=== PATIENT | male | born 1960 | race Caucasian/White ===

== ENCOUNTER → 2017-08-09 | Outpatient (CLI) | payer OTHER ==
[~2017-08-09] MED LIST: ISOVUE-370 76% 100ML VIAL (Q9967) As Ordered ONE
--- NOTE | 2017-08-09 09:05 | REP ---
CT NECK WITH CONTRAST: HISTORY: Swollen glands. CONTRAST: Isovue 370, 75 mL. The naso-, vaishali-, and hypopharynx, larynx and subglottic trachea are normal in appearance. The salivary glands are normal in size. A small 4 mm focus of fat is present in the right submandibular gland. The remaining salivary glands are normal in density. A 7 mm hypodensity is present in the right thyroid lobe. This most likely represents a cyst. The left thyroid lobe is hypoplastic. The left thyroid lobe is normal in density. Degenerative change is present in the cervical spine. The lung apices are clear. The visualized sinuses are clear. IMPRESSION: There is a 7 mm hypodensity in the right thyroid lobe. This most likely represents a cyst. Ultrasound may be helpful for further evaluation. Signed by Cyril Keith MD 08/09/2017 11:16 A
== END ==
LOC: M RAD 07:51
PROVIDERS: ATTEND Internal Medicine
DX: R59.0 Localized enlarged lymph nodes (principal)
CPT/HCPCS: 70491; Q9967

== ENCOUNTER → 2017-08-17 | Outpatient (CLI) | payer OTHER ==
--- NOTE | 2017-08-17 08:56 | REP ---
CT maxillofacial study without contrast: History: Chronic rhinitis. Comparison is made with images from brain MRI study dated October 25, 2015. CT findings: The right frontal sinus is small but clear. Left frontal sinus is clear. Ethmoid air cells are clear. There is no evidence of sphenoid or maxillary sinus opacification or mucosal thickening. Mastoid aeration is normal and symmetric. No intraorbital abnormality is seen. The visualized intracranial structures are unremarkable. The bony nasal septum bows somewhat to the left without a visible beak. There is an aerated jessica bullosa on the left. Nasal turbinate soft tissues are otherwise unremarkable. No nasal polyp is seen. There is mild developmental narrowing of the infundibulum on the left. OMCs are patent however bilaterally. No bony destructive lesion is seen. The visualized deep facial structures are unremarkable and symmetric. Impression: Mild leftward bowing of the nasal septum without visible beak. Aerated jessica bullosa on the left. Otherwise normal study. The paranasal sinuses are clear. Signed by James Yu MD 08/17/2017 04:12 P
== END ==
LOC: M RAD 07:04
PROVIDERS: ATTEND Otolaryngology
DX: J31.0 Chronic rhinitis (principal)

== ENCOUNTER 2017-10-17 11:58 | Day surgery (SDC) | payer OTHER ==
[2017-10-17] MEDS ORDERED: NS 1,000 ML IV (12:15)
[2017-10-17] MEDS ORDERED: PROPOFOL 200 MG/20 ML VIAL As Ordered ×3 (13:42→13:51)
[2017-10-17] MEDS ORDERED: LIDOCAINE 2% INJ 100 MG/5 ML SDV (FOR ANES.) As Ordered (13:42)
== END 2017-10-17 14:56 | disposition home or self-care (01) ==
LOC: M OPP 11:58
DX: K62.5 Hemorrhage of anus and rectum (principal); R10.30 Lower abdominal pain, unspecified; D12.3 Benign neoplasm of transverse colon; K64.0 First degree hemorrhoids; K57.30 Diverticulosis of large intestine without perforation or abscess without bleeding; R13.10 Dysphagia, unspecified; R12 Heartburn; K22.8 Other specified diseases of esophagus; K44.9 Diaphragmatic hernia without obstruction or gangrene; K31.89 Other diseases of stomach and duodenum; I10 Essential (primary) hypertension; K21.9 Gastro-esophageal reflux disease without esophagitis; Z85.47 Personal history of malignant neoplasm of testis; Z92.21 Personal history of antineoplastic chemotherapy; Z79.899 Other long term (current) drug therapy
CPT/HCPCS: 45380

== ENCOUNTER 2020-10-10 12:20 | Emergency (ER) | payer OTHER ==
[~2020-10-10] VITALS: Ht 172.7 cm; Wt 81.9 kg
[~2020-10-10 12:20] MED LIST changes: -ISOVUE-370 76% 100ML VIAL (Q9967) As Ordered ONE; +LISI20TA33; +NEXI20CA PO
[2020-10-10] MEDS ORDERED: ONDANSETRON 4MG/2ML VIAL IV ONE (13:00)
[2020-10-10] MEDS ORDERED: NS 1,000 ML IV ONE ×2 (13:00→15:45)
[2020-10-10 13:42] LABS: BASO % 0.1 % (0.0-1.0); HEMATOCRIT 42.7 % (42.0-52.0); HEMOGLOBIN 14.5 g/dl (13.5-17.5); LYMPH # 0.3 10^3/uL (1.5-5.0); MEAN CORPUSCULAR HEMOGLOBIN 29.8 pg (27.0-33.0); MEAN CORPUSCULAR VOLUME 87.7 fl (80.0-96.0); MONO # 0.6 10^3/uL (0.0-0.8); NEUTROPHILS # 6.2 10^3/uL (1.5-8.5); NEUTROPHILS % 87.6 % (36.0-66.0); PLATELET COUNT, AUTOMATED 124 10^3/uL (150-450); RED BLOOD COUNT 4.87 10^6/uL (4.30-6.10)
[2020-10-10 13:57] LABS: BLOOD UREA NITROGEN 15 MG/DL (7-18); CALCIUM LEVEL 9.2 MG/DL (8.8-10.2); CARBON DIOXIDE LEVEL 29 MEQ/L (21-32); CHLORIDE LEVEL 100 MEQ/L (98-107); CREATININE FOR GFR 1.54 MG/DL (0.70-1.30); GLOMERULAR FILTRATION RATE 49.1 (>49); GLUCOSE, FASTING 164 MG/DL (70-100); SODIUM LEVEL 137 MEQ/L (136-145)
[2020-10-10] MEDS ORDERED: KETOROLAC 30 MG/ML 1ML VIAL IV ONE (14:00)
[2020-10-10] MEDS ORDERED: ACETAMINOPHEN TAB 650MG DOSE (2X325MG) PO ONE (14:00)
[2020-10-10] MEDS ORDERED: ACETAMINOPHEN 500 MG TAB PO ONE (14:00)
[2020-10-10 15:38] VITALS: BP 157/76
[2020-10-10 15:40] LABS: CK-MB VALUE MASS < 1.0 NG/ML (<3.6); CPK CREATINE PHOSPHOKINASE 58 U/L (39-308); MB/CK RELATIVE INDEX 1.72 (< OR =4); TROPONIN I < 0.02 NG/ML (< 0.10)
[2020-10-10] MEDS ORDERED: CARVedilol 12.5 MG TAB PO ONE (15:45)
[2020-10-10] MEDS ORDERED: LISI20TA20 PO (16:58)
[2020-10-10] MEDS ORDERED: CORE12.5 PO (16:58)
[2020-10-10 17:00] VITALS: BP 126/67
--- NOTE | 2020-10-10 17:22 | ECGEPIP ---
[facility] - ED Test Date: 2020-10-10 Pat Name: [place] PETE Department: Room: - Gender: Male Infusion Rn: rs : 1960 Requested By: PETER CHAO PA-C. Order Number: [id number] Reading MD: Shira Garces Measurements Intervals [place] Rate: 119 P: 26 SD: 138 QRS: 22 QRSD: 89 T: 64 QT: 313 QTc: 441 Interpretive Statements SINUS TACHYCARDIA ABNORMAL RHYTHM ECG NONSPECIFIC ST T WAVE CHANGES 10/25/[address] T WAVE CHANGES Electronically Signed on 10-10-2020 17:22:19 EST by Shira Garces
== END 2020-10-10 17:20 | disposition home or self-care (01) ==
LOC: M ED 12:20
DX: E86.0 Dehydration (principal); I10 Essential (primary) hypertension; A05.9 Bacterial foodborne intoxication, unspecified; K21.9 Gastro-esophageal reflux disease without esophagitis; Z79.899 Other long term (current) drug therapy
CPT/HCPCS: 80048; 82550; 82553; 84484; 85025; 93005; 96361; 96374; 99285; J2405

== ENCOUNTER 2020-11-14 06:28 | Inpatient (IN) | payer OTHER ==
[~2020-11-14] VITALS: Ht 172.7 cm; Wt 86.5 kg
[~2020-11-14 06:28] MED LIST changes: +CORE12.5 PO; +LISI20TA20 PO; -LISI20TA33; +LISI20TA33 PO
[2020-11-14 07:39] LABS: BASO % 0.3 % (0.0-1.0); EOS # 0.1 10^3/uL (0.0-0.5); EOS % 1.9 % (0.0-3.0); HEMATOCRIT 36.6 % (42.0-52.0); HEMOGLOBIN 12.8 g/dl (13.5-17.5); LYMPH # 0.6 10^3/uL (1.5-5.0); LYMPH % 9.9 % (24.0-44.0); MEAN CORPUSCULAR HEMOGLOBIN 30.5 pg (27.0-33.0); MEAN CORPUSCULAR VOLUME 87.4 fl (80.0-96.0); MONO # 0.4 10^3/uL (0.0-0.8); MONO % 6.1 % (2.0-8.0); NEUTROPHILS # 4.8 10^3/uL (1.5-8.5); NEUTROPHILS % 81.3 % (36.0-66.0); PLATELET COUNT, AUTOMATED 139 10^3/uL (150-450); RED BLOOD COUNT 4.19 10^6/uL (4.30-6.10); WHITE BLOOD COUNT 5.9 10^3/uL (4.0-10.0)
[2020-11-14 08:06] LABS: ALBUMIN 3.6 GM/DL (3.2-5.2); ALT/SGPT 190 U/L (12-78); BILIRUBIN,DIRECT 1.5 MG/DL (0.0-0.2); BILIRUBIN,TOTAL 2.8 MG/DL (0.2-1.0); BLOOD UREA NITROGEN 21 MG/DL (7-18); CALCIUM LEVEL 8.6 MG/DL (8.8-10.2); CARBON DIOXIDE LEVEL 26 MEQ/L (21-32); CHLORIDE LEVEL 109 MEQ/L (98-107); CK-MB VALUE MASS < 1.0 NG/ML (<3.6); CPK CREATINE PHOSPHOKINASE 45 U/L (39-308); CREATININE FOR GFR 1.34 MG/DL (0.70-1.30); GLOMERULAR FILTRATION RATE 57.7 (>49); GLUCOSE, FASTING 170 MG/DL (70-100); LIPASE 141 U/L (73-393); MB/CK RELATIVE INDEX 2.22 (< OR =4); POTASSIUM SERUM 4.3 MEQ/L (3.5-5.1); SODIUM LEVEL 141 MEQ/L (136-145); TOTAL PROTEIN 6.6 GM/DL (6.4-8.2); TROPONIN I < 0.02 NG/ML (< 0.10)
--- NOTE | 2020-11-14 08:30 | REP ---
INDICATION: Abdominal Pain COMPARISON: None. TECHNIQUE: Upright view of the chest with supine and upright views of the abdomen and pelvis. FINDINGS: Frontal upright view of the chest demonstrates no acute cardiopulmonary process or free air below the diaphragm to suspect pneumoperitoneum. Supine and upright views of the abdomen and pelvis demonstrate nonspecific bowel gas pattern without obstruction or perforation. Surgical clips overlie the abdomen. No organomegaly. No abnormal calcifications. Skeletal structures normal for age. IMPRESSION: Nonspecific bowel gas pattern. <Electronically signed by Emiliano Bae > 11/14/20 0810
--- NOTE | 2020-11-14 08:32 | REP ---
INDICATION: RUQ abd pain, worse after eating COMPARISON: None. TECHNIQUE: Real time holloway scale ultrasound examination using curved array transducer. FINDINGS: Liver demonstrates fatty infiltration without focal hepatic lesion identified. The pancreas is incompletely evaluated due to interposed bowel gas but visualized portions appear normal. Gallbladder demonstrates multiple gallstones without wall thickening or pericholecystic fluid to suggest acute cholecystitis. No biliary ductal dilatation is appreciated and the common bile duct measures 6 mm diameter. Right kidney measures 12.3 x 4.8 x 4.2 cm with 1.3 cm lower pole cortical cyst, and no evidence for hydronephrosis or nephrolithiasis. No ascites. IMPRESSION: 1. Cholelithiasis. 2. Hepatosteatosis. 3. 1.3 cm right renal cyst. <Electronically signed by Emiliano Bae > 11/14/20 0821
--- NOTE | 2020-11-14 08:41 | ED PDOC ---
Post-Departure Follow-Up radiology report faxed to mariah Mohr Sarah MD Nov 14, 2020 08:41
[2020-11-14] MEDS ORDERED: CARV12.5 PO (08:51)
[2020-11-14] MEDS ORDERED: MORPHINE 2 MG/ML 1ML VIAL (J2270) IV PRN (09:20)
[2020-11-14] MEDS: CARVedilol 12.5 MG TAB PO SCH ×2 (09:48→20:03)
[2020-11-14] MEDS: LR 1,000 ML IV SCH ×2 (09:49→20:03)
--- NOTE | 2020-11-14 09:49 | ECGEPIP ---
[facility] - ED Test Date: 2020-11-14 Pat Name: [place] PETE Department: Room: - Gender: Male Sock Turner: IAN : 1960 Requested By: RAKESH Brandon PA-C Order Number: [id number] Reading MD: Jeremy Sands Measurements Intervals [place] Rate: 90 P: 54 MD: 144 QRS: 54 QRSD: 86 T: 23 QT: 346 QTc: 423 Interpretive Statements Normal sinus rhythm NONSPECIFIC T WAVE ABNORMALITY(S) RATE CHANGE COMPARED TO 10/10/20 Electronically Signed on 11-14-2020 9:49:18 EDT by Jeremy Sands
[2020-11-14] MEDS: PANTOPRAZOLE 40MG VIAL (C9113 PER 1) IV SCH (10:01)
[2020-11-14 10:09] LABS: RSV AMPLIFICATION NEGATIVE (NEGATIVE)
--- NOTE | 2020-11-14 10:38 | HPEPDOC ---
General Date of Admission 11/14/20 Date of Service: Nov 14, 2020 Chief Complaint The patient is a 60-year-old male admitted with a reason for visit of Marie Hu. Source: Patient, RN/MD History of Present Illness 60 year old male with PMH of GERD, hiatal hernia, ole h/o left testicular cancer, HLD, presented to ED with right upper quadrant pain for the past 12 hours which started after dinner last night. He felt some acid reflux in the colorer and had 2 episodes of vomiting overnight and now feels bloated. His pain in the RUQ is constant, dull aching about 6/10 in intensity with no radiation. No fever or chills. He does have chronic constipation. He reported that the cahnge in his bowel habits started about 2 years ago. He also reported early satiety when he would feel fullHis abdominal discomfort is a little better after he threw up early this morning. Abdominal US showed Cholelithiasis and labs showed elevated LFTs. Patient admitted for biliary colic and possible CBD obstruction. MRCP has been ordered. Home Medications Scheduled Carvedilol (Carvedilol) 12.5 Mg Tablet, 12.5 MG PO BID, (Reported) Esomeprazole Magnesium (Nexium) 20 Mg Cap, 20 MG PO QPM, (Reported) Lisinopril (Lisinopril) 20 Mg Tab, 20 MG PO DAILY, (Reported) Allergies Coded Allergies: No Known Allergies (Unverified , 10/11/17) Past Medical History Medical History HTN testicular cancer s/p Left radical orchidectomy , retroperitoneal lymph node dissection and chemotherapy in 1980 GERD Diverticulosis in the recto-sigmoid colon, in the sigmoid colon and in the descending colon Hemorrhoids Multiple colonic polyps removed. hiatal hernia h/o chronic prostatitis. Surgical History Hemorroid surgery Left orchidectomy and retroperitoneal lymph node dissection Family History Significant Family History: Diabetes (father), Other (sister gall stones) Social History * Smoker: Denies Alcohol: Denies Drugs: denies A-FIB/CHADSVASC A-FIB History Current/History of A-Fib/PAF?: No Review of Systems Constitutional: Denies: Chills, Fever, Night Sweats Eyes: Denies: Pain, Vision change ENT: Denies: Head Aches, Ear Pain, Dysphagia Skin: Denies: Rash, Lesions, Breakdown Pulmonary: Denies: Dyspnea, Cough Cardiovascular: Denies: Chest Pain, Palpitations, Orthopnea, Paroxysmal Noc. Dyspnea, Lt Headedness Gastrointestinal: Reports: Nausea, Vomiting, Abdominal Pain Genitourinary: Denies: Dysuria, Frequency, Incontinence, Retention Hematologic: Denies: Bruising, Bleeding Excessively Physical Examination General Exam: Positive: Alert, Cooperative, No Acute Distress Eye Exam: Positive: PERRLA, Conjunctiva & lids normal, EOMI; Negative: Sclera icteric ENT Exam: Positive: Atraumatic, Mucous membr. moist/pink, Pharynx Normal Neck Exam: Positive: Supple; Negative: JVD, thyromegaly Chest Exam: Positive: Clear to auscultation, Normal air movement Heart Exam: Positive: Rate Normal, Regular Rhythm, Normal S1, Normal S2; Negative: Murmurs, Rubs Abdomen Exam: Positive: Normal bowel sounds, Soft, Tenderness (mild on RUQ); Negative: Hepatospenomegaly Extremity Exam: Positive: Normal pulses; Negative: Clubbing, Cyanosis, Edema Vital Signs Vital Signs Date Time Temp Pulse Resp B/P (MAP) Pulse Ox O2 Delivery O2 Flow Rate FiO2 11/14/20 07:45 155/70 (98) 11/14/20 07:45 98.9 92 16 98 11/14/20 06:29 Room Air Laboratory Data Labs 24H Laboratory Tests 2 11/14/20 07:18: Urine Color YELLOW, Urine Appearance CLEAR, Urine pH 5.0, Urine Specific [place] 1.018, Urine Protein NEGATIVE, Urine Glucose (UA) 1+H, Urine Ketones NEGATIVE, Urine Blood NEGATIVE, Urine Nitrite NEGATIVE, Urine Bilirubin NEGATIVE, Urine Urobilinogen 2.0H, Urine Leukocyte Esterase NEGATIVE, Urine WBC (Auto) 1, Urine RBC (Auto) 1, Urine Hyaline Casts (Auto) 0, Urine Bacteria (Auto) NEGATIVE, Urine Squamous Epithelial Cells 0, Urine Mucus (Auto) SMALL, Urine Sperm (Auto) 11/14/20 07:19: Immature Granulocyte % (Auto) 0.5, Neutrophils (%) (Auto) 81.3H, Lymphocytes (%) (Auto) 9.9L, Monocytes (%) (Auto) 6.1, Eosinophils (%) (Auto) 1.9, Basophils (%) (Auto) 0.3, Neutrophils # (Auto) 4.8, Lymphocytes # (Auto) 0.6L, Monocytes # (Auto) 0.4, Eosinophils # (Auto) 0.1, Basophils # (Auto) 0.0, Nucleated Red Blood Cells % (auto) 0.0, Anion Gap 6L, Glomerular Filtration Rate 57.7, Calcium Level 8.6L, Total Bilirubin 2.8H, Direct Bilirubin 1.5H, Aspartate Amino Transf (AST/SGOT) 181H, Alanine Aminotransferase (ALT/SGPT) 190H, Alkaline Phosphatase 81, Total Creatine Kinase 45, Creatine Kinase MB < 1.0, Creatine Kinase MB Relative Index 2.22, Troponin I < 0.02, Total Protein 6.6, Albumin 3.6, Albumin /Globulin Ratio 1.2, Lipase 141 CBC/BMP Laboratory Tests 11/14/20 07:19 Assessment/Plan 60 year old male with PMH of GERD, hiatal hernia, ole h/o left testicular c ancer, HLD, presented to ED with right upper quadrant pain for the past 12 hours which started after dinner last night. He felt some acid reflux in the colorer and had 2 episodes of vomiting overnight and now feels bloated. His pain in the RUQ is constant, dull aching about 6/10 in intensity with no radiation. No fever or chills. He does have chronic constipation. His abdominal discomfort is a little better after he threw up early this morning. Abdominal US showed Cholelithiasis and labs showed elevated LFTs. Patient admitted for biliary colic and possible CBD obstruction. Biliary Colic/ CBD stone does not look like he has acute cholecystitis. as no WBC, no fever. US with gallstones. MRCP NPO, IVF. GERD PPI HTN continue coreg and lisinopril Plan / VTE VTE Prophylaxis Ordered?: Yes ISAURA REYES MD Nov 14, 2020 09:17
--- NOTE | 2020-11-14 11:07 | REPVR ---
PROCEDURE INFORMATION: Exam: MR Abdomen Without Contrast Exam date and time: 11/14/2020 8:41 AM Age: 60 years old Clinical indication: Abdominal tenderness; Additional info: Ruq abd pain, elevated bilirubin/lft's, cholelithiasis TECHNIQUE: Imaging protocol: MR of the abdomen without contrast. COMPARISON: GALLBLADDER US 11/14/2020 7:53 AM FINDINGS: Liver: Hepatic steatosis. Small cyst in the posterior liver. Gallbladder and bile ducts: Clustered gallstones in the gallbladder neck, with gallbladder distention and gallbladder wall thickening with mild pericholecystic edema and fluid accumulation. Common bile duct measures 6 mm, within normal limits. No filling defects to suggest choledocholithiasis although there is truncated signal intensity within the distal common bile duct. Pancreas: Pancreatic duct is not dilated. Spleen: Mild splenomegaly. 1.5 cm cyst or hemangioma in the posterior spleen. Adrenal glands: No mass. Kidneys and ureters: Multiple small simple renal cortical cysts. There is a 1.4 cm indeterminate signal intensity right posterior exophytic renal lesion (series 301, image 5). Stomach and bowel: Visualized stomach and intestines are unremarkable. Appendix: Study is degraded by patient motion artifact. Intraperitoneal space: No free fluid. Arteries: No abdominal aortic aneurysm. IMPRESSION: 1. Cholelithiasis with findings suspicious for early acute cholecystitis. While there are no discrete common bile duct filling defects, truncated appearance of the distal common bile duct could represent an impacted stone however there is no significant biliary ductal dilation and this may be secondary to motion artifact. 2. Indeterminate signal intensity exophytic right renal lesion. Recommend multiphasic renal MRI for further evaluation on a nonemergent basis. 3. Splenomegaly. 4. Hepatic steatosis. Electronically signed by: Poncho Morales On 11/14/2020 11:06:35 AM
[2020-11-14 11:30] VITALS: BP 167/92
[2020-11-14] MEDS: PIPERACILLIN/TAZOBACTAM SOD 3.375 GM in D5W MINI-BAG PLUS 50 ML IV SCH ×3 (12:21→23:46)
[2020-11-14] MEDS: ACETAMINOPHEN TAB 650MG DOSE (2X325MG) PO PRN ×2 (14:52→20:02)
[2020-11-14 22:00] VITALS: BP 126/72
[2020-11-15] MEDS: PIPERACILLIN/TAZOBACTAM SOD 3.375 GM in D5W MINI-BAG PLUS 50 ML IV SCH ×3 (05:18→17:45)
[2020-11-15] MEDS: LR 1,000 ML IV SCH ×2 (05:38→17:45)
[2020-11-15 06:00] VITALS: BP 117/71
[2020-11-15 06:52] LABS: BASO % 0.3 % (0.0-1.0); EOS # 0.2 10^3/uL (0.0-0.5); EOS % 3.8 % (0.0-3.0); HEMOGLOBIN 11.4 g/dl (13.5-17.5); LYMPH # 0.7 10^3/uL (1.5-5.0); LYMPH % 18.3 % (24.0-44.0); MEAN CORPUSCULAR HEMOGLOBIN 30.4 pg (27.0-33.0); MEAN CORPUSCULAR HGB CONC 34.5 g/dl (32.0-36.5); MONO # 0.4 10^3/uL (0.0-0.8); MONO % 10.7 % (2.0-8.0); NEUTROPHILS # 2.6 10^3/uL (1.5-8.5); NEUTROPHILS % 66.1 % (36.0-66.0); PLATELET COUNT, AUTOMATED 123 10^3/uL (150-450); RED BLOOD COUNT 3.75 10^6/uL (4.30-6.10); WHITE BLOOD COUNT 3.9 10^3/uL (4.0-10.0)
[2020-11-15 07:09] LABS: BILIRUBIN,TOTAL 3.2 MG/DL (0.2-1.0); CALCIUM LEVEL 8.2 MG/DL (8.8-10.2); CREATININE FOR GFR 1.38 MG/DL (0.70-1.30); GLOMERULAR FILTRATION RATE 55.8 (>49); POTASSIUM SERUM 3.9 MEQ/L (3.5-5.1); TOTAL PROTEIN 5.9 GM/DL (6.4-8.2)
[2020-11-15] MEDS: CARVedilol 12.5 MG TAB PO SCH ×2 (08:57→20:55)
[2020-11-15] MEDS: PANTOPRAZOLE 40MG VIAL (C9113 PER 1) IV SCH (08:57)
--- NOTE | 2020-11-15 11:59 | IPNPDOC ---
Subjective Date Seen The patient was seen on 11/15/20. Subjective Chief Complaint/HPI Denies any abdominal pain. Does not have much appetite also. He is still constipated. He reports that this constipation started about 2 years. He also reports early satiety for several months when if he had a big lunch he would skip dinner and breakfast the next day and not feel hungry till the lunch next day. Objective Physical Examination General Exam: Positive: Alert, Cooperative, No Acute Distress Eye Exam: Positive: PERRLA, Conjunctiva & lids normal, EOMI; Negative: Sclera icteric ENT Exam: Positive: Atraumatic, Mucous membr. moist/pink, Pharynx Normal Neck Exam: Positive: Supple; Negative: JVD, thyromegaly Chest Exam: Positive: Clear to auscultation, Normal air movement Heart Exam: Positive: Rate Normal, Regular Rhythm, Normal S1, Normal S2; Negative: Murmurs, Rubs Abdomen Exam: Positive: Normal bowel sounds, Soft; Negative: Tenderness, Hepatospenomegaly Extremity Exam: Positive: Normal pulses; Negative: Clubbing, Cyanosis, Edema Assessment /Plan Assessment 60 year old male with PMH of GERD, hiatal hernia, ole h/o left testicular cancer, HLD, presented to ED with right upper quadrant pain for the past 12 hours which started after dinner last night. 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 His pain in the RUQ is constant, dull aching about 6/10 in intensity with no radiation. No fever or chills. He does have chronic constipation. His abdominal discomfort is a little better after he threw up early this morning. Abdominal US showed Cholelithiasis and labs showed elevated LFTs. Patient admitted for sreekanth iary colic and possible CBD obstruction. Biliary Colic/ CBD stone does not look like he has acute cholecystitis. as no WBC, no fever. US with gallstones. MRCP : Gallbladder and bile ducts: Clustered gallstones in the gallbladder neck, with gallbladder distention and gallbladder wall thickening with mild pericholecystic edema and fluid accumulation. Common bile duct measures 6 mm, within normal limits. No filling defects to suggest choledocholithiasis although there is truncated signal intensity within the distal common bile duct. Clear liquids. discussed with Dr Phillips he will see pt. He is not convinced that this is acute cholecystitis as the US did not show any features . MRCP is often an over read. Any way he would suggest an HIDA scan as the next step if he does not need ercp. Discussed with Dr Serrano as per him if LFTs remain elevated this afternoon on repeat labs then he will likely need an ERCP. GERD PPI HTN continue coreg and lisinopril Plan/VTE VTE Prophylaxis Ordered?: Yes VS, I&O, 24H, Fishbone Vital Signs/I&O Vital Signs Date Time Temp Pulse Resp B/P (MAP) Pulse Ox O2 Delivery O2 Flow Rate FiO2 11/15/20 08:57 77 116/73 11/15/20 06:00 99.2 18 96 Room Air I&O- Last 24 Hours up to 6 AM 11/15/20 06:00 Intake Total 2460 ml Output Total 875 ml Balance 1585 ml Laboratory Data 24H LABS Laboratory Tests 2 11/15/20 06:27: Immature Granulocyte % (Auto) 0.8, Neutrophils (%) (Auto) 66.1H, Lymphocytes (%) (Auto) 18.3L, Monocytes (%) (Auto) 10.7H, Eosinophils (%) (Auto) 3.8H, Basophils (%) (Auto) 0.3, Neutrophils # (Auto) 2.6, Lymphocytes # (Auto) 0.7L, Monocytes # (Auto) 0.4, Eosinophils # (Auto) 0.2, Basophils # (Auto) 0.0, Nucleated Red Blood Cells % (auto) 0.0, Anion Gap 6L, Glomerular Filtration Rate 55.8, Calcium Level 8.2L, Total Bilirubin 3.2H, Aspartate Amino Transf (AST/SGOT) 120H, Alanine Aminotransferase (ALT/SGPT) 213H, Alkaline Phosphatase 86, Total Protein 5.9L, Albumin 3.0L, Albumin/Globulin Ratio 1.0 CBC/BMP Laboratory Tests 11/15/20 06:27 ISAURA REYES MD Nov 15, 2020 11:58
[2020-11-15 15:13] LABS: ALBUMIN 3.2 GM/DL (3.2-5.2); BILIRUBIN,DIRECT 0.7 MG/DL (0.0-0.2); BILIRUBIN,TOTAL 2.5 MG/DL (0.2-1.0); TOTAL PROTEIN 5.8 GM/DL (6.4-8.2)
[2020-11-15 22:00] VITALS: BP 117/72
[2020-11-16] MEDS: PIPERACILLIN/TAZOBACTAM SOD 3.375 GM in D5W MINI-BAG PLUS 50 ML IV SCH ×2 (00:41→05:42)
[2020-11-16 06:00] VITALS: BP 118/72
[2020-11-16 06:59] LABS: BASO % 0.8 % (0.0-1.0); EOS # 0.2 10^3/uL (0.0-0.5); EOS % 5.5 % (0.0-3.0); HEMATOCRIT 34.8 % (42.0-52.0); HEMOGLOBIN 11.9 g/dl (13.5-17.5); LYMPH % 24.3 % (24.0-44.0); MEAN CORPUSCULAR HEMOGLOBIN 30.7 pg (27.0-33.0); MEAN CORPUSCULAR HGB CONC 34.2 g/dl (32.0-36.5); MEAN CORPUSCULAR VOLUME 89.7 fl (80.0-96.0); MONO # 0.4 10^3/uL (0.0-0.8); MONO % 10.8 % (2.0-8.0); NEUTROPHILS # 2.3 10^3/uL (1.5-8.5); NEUTROPHILS % 58.3 % (36.0-66.0); PLATELET COUNT, AUTOMATED 137 10^3/uL (150-450); RED BLOOD COUNT 3.88 10^6/uL (4.30-6.10)
[2020-11-16 07:27] LABS: ALBUMIN 3.1 GM/DL (3.2-5.2); CALCIUM LEVEL 8.3 MG/DL (8.8-10.2); CREATININE FOR GFR 1.57 MG/DL (0.70-1.30); GLOMERULAR FILTRATION RATE 48.1 (>49)
[2020-11-16] MEDS: PANTOPRAZOLE 40MG VIAL (C9113 PER 1) IV SCH (08:35)
[2020-11-16 08:36] VITALS: BP 145/76
[2020-11-16] MEDS: CARVedilol 12.5 MG TAB PO SCH (08:36)
[2020-11-16] MEDS ORDERED: AUGM875T28 PO (10:16)
--- NOTE | 2020-11-16 10:50 | DS.PDOC ---
Discharge Summary General Date of Admission Nov 14, 2020 at 09:17 Date of Discharge 11/16/20 Discharge Summary PROCEDURES PERFORMED DURING STAY: [None]. DISCHARGE DIAGNOSES: Biliary Colic with passage of stone or sludge Gall stones GERD HTN COMPLICATIONS/CHIEF COMPLAINT: Transaminitis. HOSPITAL COURSE: 60 year old male with PMH of GERD, hiatal hernia, ole h/o left testicular cancer, HLD, presented to ED with right upper quadrant pain for the past 12 hours which started after dinner last night. 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 His pain in the RUQ is constant, dull aching about 6/10 in intensity with no radiation. No fever or chills. He does have chronic constipation. His abdominal discomfort is a little better after he threw up early this morning. Abdominal US showed Cholelithiasis and labs showed elevated LFTs. Patient admitted for biliary colic and possible CBD obstruction. Biliary Colic and passage of CBD stone does not look like he has acute cholecystitis. as no WBC, no fever. US with gallstones. MRCP : Gallbladder and bile ducts: Clustered gallstones in the gallbladder neck, with gallbladder distention and gallbladder wall thickening with mild pericholecystic edema and fluid accumulation. Common bile duct measures 6 mm, within normal limits. No filling defects to suggest choledocholithiasis alt matilde there is truncated signal intensity within the distal common bile duct. Discussed with Dr Serrano as labs better and he is tolerating food he thinks the stone or sludge has passed and he does not need ERCP. GERD PPI HTN continue coreg and lisinopril DISCHARGE MEDICATIONS: Please see below. ALLERGIES: Please see below. PHYSICAL EXAMINATION ON DISCHARGE: VITAL SIGNS: Please see below. General Exam: Positive: Alert, Cooperative, No Acute Distress Eye Exam: Positive: PERRLA, Conjunctiva & lids normal, EOMI; Negative: Sclera icteric ENT Exam: Positive: Atraumatic, Mucous membr. moist/pink, Pharynx Normal Neck Exam: Positive: Supple; Negative: JVD, thyromegaly Chest Exam: Positive: Clear to auscultation, Normal air movement Heart Exam: Positive: Rate Normal, Regular Rhythm, Normal S1, Normal S2; Negative: Murmurs, Rubs Abdomen Exam: Positive: Normal bowel sounds, Soft; Negative: Tenderness, Hepatosplenomegaly Extremity Exam: Positive: Normal pulses; Negative: Clubbing, Cyanosis, Edema LABORATORY DATA: Please see below. IMAGING: MRCP: Liver: Hepatic steatosis. Small cyst in the posterior liver. Gallbladder and bile ducts: Clustered gallstones in the gallbladder neck, with gallbladder distention and gallbladder wall thickening with mild pericholecystic edema and fluid accumulation. Common bile duct measures 6 mm, within normal limits. No filling defects to suggest choledocholithiasis although there is truncated signal intensity within the distal common bile duct. Pancreas: Pancreatic duct is not dilated. Spleen: Mild splenomegaly. 1.5 cm cyst or hemangioma in the posterior spleen. Adrenal glands: No mass. Kidneys and ureters: Multiple small simple renal cortical cysts. There is a 1.4 cm indeterminate signal intensity right posterior exophytic renal lesion (series 301, image 5). Stomach and bowel: Visualized stomach and intestines are unremarkable. Appendix: Study is degraded by patient motion artifact. Intraperitoneal space: No free fluid. Arteries: No abdominal aortic aneurysm. IMPRESSION: 1. Cholelithiasis with findings suspicious for early acute cholecystitis. While there are no discrete common bile duct filling defects, truncated appearance of the distal common bile duct could represent an impacted stone however there is no significant biliary ductal dilation and this may be secondary to motion artifact. 2. Indeterminate signal intensity exophytic right renal lesion. Recommend multiphasic renal MRI for further evaluation on a nonemergent basis. 3. Splenomegaly. 4. Hepatic steatosis. ACTIVITY: [As tolerated]. DIET: Low fat and low cholesterol DISCHARGE PLAN: Home DISCHARGE INSTRUCTIONS: PMD in 1 week, Referral to Surgeon Dr Phillips in 2 to 3 weeks DISCHARGE CONDITION: [Stable]. TIME SPENT ON DISCHARGE: 35 minutes. Vital Signs/I&Os Vital Signs Date Time Temp Pulse Resp B/P (MAP) Pulse Ox O2 Delivery O2 Flow Rate FiO2 11/16/20 08:36 80 145/76 11/16/20 06:00 98.1 18 98 Room Air I&O- Last 24 Hours up to 6 AM 11/16/20 06:00 Intake Total 1350 ml Output Total 300 ml Balance 1050 ml Laboratory Data Labs 24H Laboratory Tests 2 11/15/20 14:04: Total Bilirubin 2.5H, Direct Bilirubin 0.7H, Aspartate Amino Transf (AST/SGOT) 96H, Alanine Aminotransferase (ALT/SGPT) 197H, Alkaline Phosphatase 82, Total Protein 5.8L, Albumin 3.2, Albumin/Globulin Ratio 1.2 11/16/20 06:36: Total Bilirubin 2.0H, Aspartate Amino Transf (AST/SGOT) 56H, Alanine Aminotransferase (ALT/SGPT) 158H, Alkaline Phosphatase 78, Total Protein 6.0L, Albumin 3.1L, Albumin/Globulin Ratio 1.1, Immature Granulocyte % (Auto) 0.3, Neutrophils (%) (Auto) 58.3, Lymphocytes (%) (Auto) 24.3, Monocytes (%) (Auto) 10.8H, Eosinophils (%) (Auto) 5.5H, Basophils (%) (Auto) 0.8, Neutrophils # (Auto) 2.3, Lymphocytes # (Auto) 1.0L, Monocytes # (Auto) 0.4, Eosinophils # (Auto) 0.2, Basophils # (Auto) 0.0, Nucleated Red Blood Cells % (auto) 0.0, Ani on Gap 6L, Glomerular Filtration Rate 48.1L, Calcium Level 8.3L CBC/BMP Laboratory Tests 11/16/20 06:36 Discharge Medications Scheduled Amoxicillin/Potassium Clav (Augmentin 875-125 Tablet) 1 Each Tablet, 1 TAB PO BID Carvedilol (Carvedilol) 12.5 Mg Tablet, 12.5 MG PO BID, (Reported) Esomeprazole Magnesium (Nexium) 20 Mg Cap, 20 MG PO QPM, (Reported) Lisinopril (Lisinopril) 20 Mg Tab, 20 MG PO DAILY, (Reported) Allergies Coded Allergies: No Known Allergies (Unverified , 10/11/17) ISAURA REYES MD Nov 16, 2020 10:50
== END 2020-11-16 12:00 | disposition home or self-care (01) | DRG 446 ==
LOC: M ED 06:28 → M ED INP 09:17 → ENRESERV 09:26 → M MS5PR 11:33
PROVIDERS: ADMIT Internal Medicine Nephrology; ATTEND Internal Medicine Nephrology
DX: K80.70 Calculus of gallbladder and bile duct without cholecystitis without obstruction (principal); K21.9 Gastro-esophageal reflux disease without esophagitis; K59.09 Other constipation; I10 Essential (primary) hypertension; K44.9 Diaphragmatic hernia without obstruction or gangrene; E78.5 Hyperlipidemia, unspecified; K76.0 Fatty (change of) liver, not elsewhere classified; K64.9 Unspecified hemorrhoids; Z85.47 Personal history of malignant neoplasm of testis; Z86.010 Personal history of colon polyps; Z92.21 Personal history of antineoplastic chemotherapy; K57.30 Diverticulosis of large intestine without perforation or abscess without bleeding; Z79.899 Other long term (current) drug therapy; Z90.79 Acquired absence of other genital organ(s)

== ENCOUNTER → 2020-12-12 | Outpatient (CLI) | payer OTHER ==
[~2020-12-12] MED LIST changes: +AUGM875T28 PO; +CARV12.5 PO
== END ==
LOC: M LABSMTC 10:10
PROVIDERS: ATTEND Anesthesiology
DX: Z11.52 Encounter for screening for COVID-19 (principal)

== ENCOUNTER 2020-12-17 10:59 | Day surgery (SDC) | payer OTHER ==
[~2020-12-17] VITALS: Ht 175.3 cm; Wt 79.4 kg
[~2020-12-17 10:59] MED LIST changes: +LR 1,000 ML IV ONE
[2020-12-17] MEDS ORDERED: BUPIVACAINE/EPIN 0.25% 30 ML VIAL As Ordered ONE (12:19)
[2020-12-17] MEDS ORDERED: propofoL 200 MG/20 ML VIAL As Ordered ONE (12:45)
[2020-12-17] MEDS ORDERED: fentaNYL 250 MCG/5 ML INJECTION (J3010) As Ordered ONE (12:45)
[2020-12-17] MEDS ORDERED: dexameTHASONE 4 MG/ML 1ML VIAL (J1100 PER 1MG) As Ordered ONE (12:45)
[2020-12-17] MEDS ORDERED: ONDANSETRON 4MG/2ML VIAL As Ordered ONE ×2 (12:45→15:40)
[2020-12-17] MEDS ORDERED: LIDOCAINE 2% 100MG/5ML SDV (FOR ANES.) As Ordered ONE (12:45)
[2020-12-17] MEDS ORDERED: ROCURONIUM BROMIDE 50 MG/5 ML VIAL As Ordered ONE (12:45)
[2020-12-17] MEDS ORDERED: MIDAZOLAM INJ 2MG/2ML VIAL (J2250 PER 1MG) As Ordered ONE (12:45)
[2020-12-17] MEDS ORDERED: KETOROLAC 60MG 2ML VIAL As Ordered ONE (12:45)
[2020-12-17] MEDS ORDERED: SUGAMMADEX SODIUM 500 MG/5 ML VIAL (BRIDION) As Ordered ONE (12:45)
[2020-12-17] MEDS ORDERED: ACETAMINOPHEN 1000MG 100ML IV BTL (OFIRMEV) (J0131 PER 10MG) As Ordered ONE (12:51)
[2020-12-17] MEDS ORDERED: fentaNYL 100 MCG/2 ML INJECTION (J3010) As Ordered ONE (13:53)
[2020-12-17] MEDS: fentaNYL 100 MCG/2 ML INJECTION (J3010) IV PRN ×4 (13:57→14:18)
[2020-12-17] MEDS ORDERED: NORCO, ANEXSIA 5/325MG TABLET (HYDROcodone/ACETAMINOPHEN) PO PRN (14:05)
[2020-12-17] MEDS ORDERED: ONDANSETRON 4MG/2ML VIAL IV PRN (14:05)
[2020-12-17] MEDS ORDERED: METOCLOPRAMIDE INJ 10MG/2ML VIAL (J2765 PER 1) IV PRN ×2 (14:05→15:45)
[2020-12-17] MEDS ORDERED: MEPERIDINE INJ 25 MG/ML VIAL (J2175) IV PRN (14:05)
[2020-12-17] MEDS ORDERED: oxyCODONE 5MG TAB PO PRN (14:05)
[2020-12-17] MEDS ORDERED: LR 1,000 ML IV SCH (14:05)
[2020-12-17] MEDS: HYDROMORPHONE HCL 0.5 MG/ 0.5 ML SYRINGE (J1170 PER 1) IV PRN ×4 (14:38→14:58)
--- NOTE | 2020-12-17 14:42 | RO ---
OPERATIVE NOTE DATE OF OPERATION: 12/17/2020 PREOPERATIVE DIAGNOSIS: Symptomatic cholelithiasis. POSTOPERATIVE DIAGNOSIS: Symptomatic cholelithiasis. PROCEDURE: Robotic cholecystectomy. SURGEON: Sree Phillips DO NUCLEAR CONTROL ROOM OPERATOR: Alina Patino NP ANESTHESIA: General. EBL: 5 mL. COMPLICATIONS: None. INDICATION FOR PROCEDURE: The patient is a 60- year-old male who presents with right upper quadrant pain, found to have symptomatic cholelithiasis. Recommendation was to proceed with robotic cholecystectomy. Risks and benefits of the procedure not limited to but including bleeding, infection, hernia, damage to surrounding structures and need for further surgery were discussed in detail with the patient. Informed consent was obtained and procedure was planned. DESCRIPTION OF PROCEDURE: The patient was brought back to operating room 7. After sufficient sedation, the abdomen was sterilely prepped and draped. Next, time-out was done to confirm proper patient and proper procedure. Following that an 8 mm incision was made in the left upper quadrant, Veress needle was inserted and the abdomen was insufflated to 15 mmHg. Veress needle was then removed. An 8-mm Optiview port was used to gain access to the abdomen. Once the abdomen was entered, there were multiple small bowel adhesions from the umbilicus superiorly and one in the midline. I was able to look around to the other side and place three ports under direct visualization in the right upper quadrant. Using those three ports, I was able to connect them to the robot and complete the procedure. When the ports were connected to the robot and next from the console, the fundus of the gallbladder was elevated up into the right shoulder. The cystic duct and cystic artery were carefully dissected free using a combination of blunt and sharp dissection. Once they were both identified, they were both doubly clipped and cut. The gallbladder was then dissected free from the gallbladder fossa using electrocautery. Once the gallbladder was removed, it was placed in a 5-mm Endo Catch bag and brought out through the right port site and the abdomen was then desufflated. Skin incisions were closed with 4-0 Vicryl subcuticular sutures. The abdomen was cleaned and dried. Steri-Strips, 4x4 and tape were applied.
[2020-12-17] MEDS ORDERED: METOCLOPRAMIDE INJ 10MG/2ML VIAL (J2765 PER 1) As Ordered ONE (15:43)
[2020-12-17 17:22] VITALS: BP 161/96
== END 2020-12-17 17:36 | disposition home or self-care (01) ==
LOC: M SDC 10:59
PROVIDERS: ATTEND Surgery
DX: K80.10 Calculus of gallbladder with chronic cholecystitis without obstruction (principal); K21.9 Gastro-esophageal reflux disease without esophagitis; I10 Essential (primary) hypertension; J34.2 Deviated nasal septum; J31.0 Chronic rhinitis; M54.5 Low back pain; Z79.899 Other long term (current) drug therapy; Z85.47 Personal history of malignant neoplasm of testis
CPT/HCPCS: 47562; 88304; J0131; J1100; J1170; J1885; J2250; J2405; J2765; J3010; S2900

== ENCOUNTER 2021-02-13 19:35 | Emergency (ER) | payer OTHER ==
[~2021-02-13] VITALS: Ht 175.3 cm; Wt 78.1 kg
[~2021-02-13 19:35] MED LIST changes: -LR 1,000 ML IV ONE
[2021-02-13 21:12] LABS: BASO % 0.3 % (0.0-1.0); EOS # 0.3 10^3/uL (0.0-0.5); EOS % 4.4 % (0.0-3.0); HEMATOCRIT 40.9 % (42.0-52.0); HEMOGLOBIN 14.3 g/dl (13.5-17.5); LYMPH # 1.7 10^3/uL (1.5-5.0); LYMPH % 24.7 % (24.0-44.0); MEAN CORPUSCULAR HEMOGLOBIN 30.9 pg (27.0-33.0); MEAN CORPUSCULAR VOLUME 88.3 fl (80.0-96.0); MONO # 0.6 10^3/uL (0.0-0.8); MONO % 9.1 % (2.0-8.0); NEUTROPHILS # 4.2 10^3/uL (1.5-8.5); NEUTROPHILS % 60.9 % (36.0-66.0); PLATELET COUNT, AUTOMATED 205 10^3/uL (150-450); RED BLOOD COUNT 4.63 10^6/uL (4.30-6.10); WHITE BLOOD COUNT 6.8 10^3/uL (4.0-10.0)
[2021-02-13] MEDS ORDERED: LIDOCAINE 5% (LIDODERM) PATCH TD ONE (21:25)
[2021-02-13] MEDS ORDERED: ACETAMINOPHEN 500 MG TAB PO ONE (21:25)
[2021-02-13] MEDS ORDERED: methocarbamoL 750 MG TAB PO ONE (21:25)
[2021-02-13 21:36] LABS: ALBUMIN 3.8 GM/DL (3.2-5.2); BILIRUBIN,DIRECT 0.3 MG/DL (0.0-0.2); BILIRUBIN,TOTAL 1.6 MG/DL (0.2-1.0); TOTAL PROTEIN 7.1 GM/DL (6.4-8.2)
[2021-02-13] MEDS ORDERED: ONDANSETRON 4 MG ORAL DISINTEGRATING TAB PO ONE (21:50)
--- NOTE | 2021-02-13 23:01 | REPVR ---
PROCEDURE INFORMATION: Exam: XR Thoracic Spine Exam date and time: 02/13/2021 9:42 PM Age: 60 years old Clinical indication: Pain in thoracic spine; Additional info: Mid back pain TECHNIQUE: Imaging protocol: XR of the thoracic spine. Views: 3 views. COMPARISON: No relevant prior studies available. FINDINGS: Bones/joints: Normal segmental bony alignment is maintained. Vertebral body height is maintained. No fracture. Multi-level, age-related thoracic degenerative disc disease is present. Soft tissues: No radiographic evidence of paravertebral soft tissue asymmetry. Surgical clips over the midline mid abdomen are present. IMPRESSION: 1. No acute or destructive process. 2. Multilevel mild degenerative disc disease, not unusual in magnitude for age Electronically signed by: Marc Miner On 02/13/2021 23:00:58 PM
--- NOTE | 2021-02-13 23:02 | REPVR ---
PROCEDURE INFORMATION: Exam: XR Chest Exam date and time: 02/13/2021 9:42 PM Age: 60 years old Clinical indication: Other: Mid back pain TECHNIQUE: Imaging protocol: XR of the chest. Views: 2 views. COMPARISON: CR Abdomen,Flat Upright,PA CHEST 11/14/2020 7:25 AM FINDINGS: Lungs: Degree of inflation of the lungs is normal. No evidence of pulmonary edema. No focal airspace process. No concerning parenchymal lung mass. Pleural spaces: No pleural effusion or pneumothorax. Heart/Mediastinum: Cardiac silhouette appears normal. No mediastinal adenopathy or hilar mass. Bones/joints: Osseous structures show no acute or concerning abnormality. Soft tissues: Midline mid abdominal surgical clips. IMPRESSION: No active or focal cardiopulmonary process. Electronically signed by: Marc Miner On 02/13/2021 23:02:01 PM
[2021-02-13] MEDS ORDERED: METH-1165 PO (23:13)
[2021-02-13] MEDS ORDERED: ASPE4PAD TOP (23:13)
[2021-02-13 23:15] VITALS: BP 139/82
[2021-02-14] MEDS ORDERED: **NOTE PATIENT COMMENT** MISC XX SCH (21:00)
== END 2021-02-13 23:23 | disposition home or self-care (01) ==
LOC: M ED 19:35
DX: M54.6 Pain in thoracic spine (principal); R79.89 Other specified abnormal findings of blood chemistry; I10 Essential (primary) hypertension; K21.9 Gastro-esophageal reflux disease without esophagitis; Z86.69 Personal history of other diseases of the nervous system and sense organs; Z79.899 Other long term (current) drug therapy
CPT/HCPCS: 36415; 71046; 72072; 80047; 80076; 81001; 83690; 85025; 99284; Q0162

== ENCOUNTER → 2021-03-25 | Outpatient (REF) | payer OTHER ==
[~2021-03-25] MED LIST changes: +ASPE4PAD TOP; +METH-1165 PO
== END ==
LOC: M LAB REF 18:01
PROVIDERS: ATTEND Internal Medicine Nephrology
DX: E83.42 Hypomagnesemia (principal)

== ENCOUNTER 2022-11-07 13:59 | Emergency (ER) | payer OTHER ==
[~2022-11-07] VITALS: Ht 167.6 cm; Wt 74.0 kg
[~2022-11-07 13:59] MED LIST changes: -LISI20TA20 PO; +LISI20TA37 PO
[2022-11-07] MEDS ORDERED: LISI10TA22 (15:08)
[2022-11-07] MEDS ORDERED: HYDR12CA (15:08)
[2022-11-07 15:53] LABS: BASO % 0.5 % (0.0-1.0); EOS # 0.2 10^3/uL (0.0-0.5); EOS % 2.4 % (0.0-3.0); HEMATOCRIT 41.9 % (42.0-52.0); HEMOGLOBIN 15.1 g/dl (13.5-17.5); LYMPH # 1.6 10^3/uL (1.5-5.0); LYMPH % 20.1 % (24.0-44.0); MEAN CORPUSCULAR HEMOGLOBIN 31.3 pg (27.0-33.0); MEAN CORPUSCULAR VOLUME 86.9 fl (80.0-96.0); MONO # 0.6 10^3/uL (0.0-0.8); MONO % 7.4 % (2.0-8.0); NEUTROPHILS # 5.4 10^3/uL (1.5-8.5); NEUTROPHILS % 68.6 % (36.0-66.0); PLATELET COUNT, AUTOMATED 207 10^3/uL (150-450); RED BLOOD COUNT 4.82 10^6/uL (4.30-6.10); WHITE BLOOD COUNT 7.8 10^3/uL (4.0-10.0)
[2022-11-07 16:04] LABS: VENOUS BASE EXCESS -2.4 (-2.0-2.0); VENOUS HCO3 24.2 MEQ/L (23.0-27.0); VENOUS O2 SATURATION 53.1 % (60.0-80.0); VENOUS PARTIAL PRESSURE CO2 48.1 mmHg (38.0-50.0); VENOUS PARTIAL PRESSURE O2 29.5 mmHg (30.0-50.0); VENOUS PH 7.319 UNITS (7.330-7.430); VENOUS STANDARD HCO3 21.4 MEQ/L; VENOUS TOTAL CO2 25.6 MEQ/L (24.0-28.0)
[2022-11-07 16:14] LABS: ACETONE/KETONE 0.6 MMOL/L (0.02-0.27)
[2022-11-07 16:23] LABS: ALBUMIN 3.7 G/DL (3.2-5.2); BILIRUBIN,DIRECT 0.4 MG/DL (<0.4); BILIRUBIN,TOTAL 1.7 MG/DL (0.3-1.2); CALCIUM LEVEL 8.7 MG/DL (8.3-10.6); CREATININE FOR GFR 1.72 MG/DL (0.70-1.30); POTASSIUM SERUM 4.8 MMOL/L (3.5-5.1); TOTAL PROTEIN 6.6 G/DL (5.7-8.2)
[2022-11-07 16:45] LABS: HEMOGLOBIN A1c 12.4 % (4.0-6.0)
[2022-11-07] MEDS ORDERED: NS 1,000 ML IV ONE ×2 (17:25→17:40)
[2022-11-07] MEDS ORDERED: HumuLIN R (REGULAR) INSULIN (NovoLIN R) **100U/ML** PER UNIT IV ONE (17:25)
[2022-11-07] MEDS ORDERED: LANTINJ4 SC (17:44)
[2022-11-07] MEDS ORDERED: FREE1KIT5 XX (17:44)
[2022-11-07] MEDS ORDERED: FREE1MIS32 XX (17:44)
[2022-11-07] MEDS ORDERED: BD P32MI SC (17:44)
[2022-11-07 20:28] VITALS: BP 102/63
== END 2022-11-07 21:31 | disposition home or self-care (01) ==
LOC: M ED 13:59
DX: E11.9 Type 2 diabetes mellitus without complications (principal); I12.9 Hypertensive chronic kidney disease with stage 1 through stage 4 chronic kidney disease, or unspecified chronic kidney disease; N18.30 Chronic kidney disease, stage 3 unspecified; K21.9 Gastro-esophageal reflux disease without esophagitis
CPT/HCPCS: 80048; 80076; 81001; 82010; 82803; 83036; 83690; 83930; 85025; 96374; 99284; J1815

== ENCOUNTER 2023-09-25 06:01 | Day surgery (SDC) | payer OTHER ==
[~2023-09-25] VITALS: Ht 175.3 cm; Wt 79.8 kg
[~2023-09-25 06:01] MED LIST changes: +BD P32MI SC; +CYCLOPENTOLATE 1% OPHTH SOLN 2ML BTL OD SCH; +FREE1KIT5 XX; +FREE1MIS32 XX; +HYDR12CA PO; +LANTINJ4 SC; +LISI10TA22; +OFLOXACIN 0.3 % (OCUFLOX) OPTH SOL 5ML OD SCH; +OMEP40CA5 PO; +PHENYLEPHRINE 2.5% OPHTH SOL 2ML OD SCH; +PROPARACAINE 0.5% OPHTH SOL 15ML OD ONE; +ROSU5TAB5 PO; +TROPICAMIDE 1% OPHTH SOLN 15ML OD SCH
[2023-09-25] MEDS ORDERED: ACET-910 PO (06:32)
[2023-09-25] MEDS ORDERED: LIDOCAINE 1% SDV 5ML VIAL As Ordered ONE (06:40)
[2023-09-25] MEDS: TROPICAMIDE 1% OPHTH SOLN 15ML OD SCH ×2 (06:41→07:04)
[2023-09-25] MEDS ORDERED: CEFUROXIME 1MG/0.1ML INTRACAMERAL INJ As Ordered ONE (06:41)
[2023-09-25] MEDS: OFLOXACIN 0.3 % (OCUFLOX) OPTH SOL 5ML OD SCH ×2 (06:41→07:04)
[2023-09-25] MEDS: PHENYLEPHRINE 2.5% OPHTH SOL 2ML OD SCH ×2 (06:42→07:04)
[2023-09-25] MEDS: CYCLOPENTOLATE 1% OPHTH SOLN 2ML BTL OD SCH ×2 (06:42→07:04)
[2023-09-25] MEDS ORDERED: BSS IRR 500ML/OMIDRIA 4ML IRR BAG (OR ONLY) As Ordered ONE (06:42)
[2023-09-25] MEDS ORDERED: MIDAZOLAM INJ 2MG/2ML VIAL As Ordered ONE (07:19)
[2023-09-25 07:55] VITALS: BP 133/75; TEMP 97.7; O2SAT 97
== END 2023-09-25 08:21 | disposition home or self-care (01) ==
LOC: M SDC 06:01
PROVIDERS: ATTEND Ophthalmology
DX: H25.11 Age-related nuclear cataract, right eye (principal); E11.9 Type 2 diabetes mellitus without complications; I10 Essential (primary) hypertension; E78.00 Pure hypercholesterolemia, unspecified; K21.9 Gastro-esophageal reflux disease without esophagitis; Z79.899 Other long term (current) drug therapy; Z79.4 Long term (current) use of insulin
CPT/HCPCS: 66984; J0697; J1097; J2250; V2632

== ENCOUNTER 2023-11-06 10:30 | Day surgery (SDC) | payer OTHER ==
[~2023-11-06] VITALS: Ht 175.3 cm; Wt 79.0 kg
[2023-11-06] MEDS: NS 1,000 ML IV ONE (06:00)
[~2023-11-06 10:30] MED LIST changes: +ACET-910 PO; -CYCLOPENTOLATE 1% OPHTH SOLN 2ML BTL OD SCH; +METF500T13 PO; -OFLOXACIN 0.3 % (OCUFLOX) OPTH SOL 5ML OD SCH; -PHENYLEPHRINE 2.5% OPHTH SOL 2ML OD SCH; -PROPARACAINE 0.5% OPHTH SOL 15ML OD ONE; -TROPICAMIDE 1% OPHTH SOLN 15ML OD SCH
[2023-11-06] MEDS ORDERED: LIDOCAINE 2% 100MG/5ML SDV (FOR ANES.) As Ordered ONE (11:33)
[2023-11-06] MEDS ORDERED: dexmedeTOMIDine (4MCG/ML)200MCG/50ML BTL (PRECEDEX) As Ordered ONE (11:35)
[2023-11-06 11:53] VITALS: TEMP 98
[2023-11-06 12:19] VITALS: BP 117/58; O2SAT 98
== END 2023-11-06 12:24 | disposition home or self-care (01) ==
LOC: M OPP 10:30
PROVIDERS: ATTEND Internal Medicine Gastroenterology
DX: K22.2 Esophageal obstruction (principal); Z12.11 Encounter for screening for malignant neoplasm of colon; K44.9 Diaphragmatic hernia without obstruction or gangrene; K64.0 First degree hemorrhoids; Z86.010 Personal history of colon polyps; Z87.19 Personal history of other diseases of the digestive system; K21.9 Gastro-esophageal reflux disease without esophagitis; Z90.49 Acquired absence of other specified parts of digestive tract; Z85.47 Personal history of malignant neoplasm of testis; Z79.4 Long term (current) use of insulin; Z79.899 Other long term (current) drug therapy; I12.9 Hypertensive chronic kidney disease with stage 1 through stage 4 chronic kidney disease, or unspecified chronic kidney disease; N18.30 Chronic kidney disease, stage 3 unspecified; E78.00 Pure hypercholesterolemia, unspecified; Z92.21 Personal history of antineoplastic chemotherapy

== ENCOUNTER → 2024-12-26 | Outpatient (CLI) | payer MEDICARE, OTHER ==
[~2024-12-26] MED LIST changes: +ROSU5TAB49 PO; -ROSU5TAB5 PO
[2024-12-26 09:16] LABS: APPEARANCE, URINE CLEAR (CLEAR); BACTERIA, URINE AUTO NEGATIVE (NEGATIVE); BILIRUBIN, URINE AUTO NEGATIVE (NEGATIVE); BLOOD, URINE BLOOD NEGATIVE (NEGATIVE); COLOR, URINE YELLOW (YELLOW); GLUCOSE, URINE (UA) AUTO NEGATIVE (NEGATIVE); KETONE, URINE AUTO NEGATIVE (NEGATIVE); LEUKOCYTE ESTERASE, URINE AUTO NEGATIVE (NEGATIVE); NITRITE, URINE AUTO NEGATIVE (NEGATIVE); PROTEIN, URINE AUTO NEGATIVE (NEGATIVE); RBC, URINE AUTO 0 /HPF (0-3); SPECIFIC GRAVITY URINE AUTO 1.017 (1.002-1.035); SQUAMOUS EPITHELIAL CELL UR AU 0 /HPF (0-6); UROBILINOGEN, URINE AUTO 0.2 mg/dL (0.0-2.0); WBC, URINE AUTO 1 /HPF (0-3)
[2024-12-26 09:17] LABS: BASO % 0.4 % (0.0-1.0); EOS # 0.4 10^3/uL (0.0-0.5); EOS % 7.4 % (0.0-3.0); HEMATOCRIT 43.2 % (42.0-52.0); HEMOGLOBIN 14.6 g/dl (13.5-17.5); LYMPH # 1.6 10^3/uL (1.5-5.0); LYMPH % 28.8 % (24.0-44.0); MEAN CORPUSCULAR HGB CONC 33.8 g/dl (32.0-36.5); MEAN CORPUSCULAR VOLUME 88.7 fl (80.0-96.0); MONO # 0.5 10^3/uL (0.0-0.8); MONO % 8.3 % (2.0-8.0); NEUTROPHILS # 3.1 10^3/uL (1.5-8.5); NEUTROPHILS % 54.6 % (36.0-66.0); PLATELET COUNT, AUTOMATED 193 10^3/uL (150-450); RED BLOOD COUNT 4.87 10^6/uL (4.30-6.10); WHITE BLOOD COUNT 5.7 10^3/uL (4.0-10.0)
[2024-12-26 09:39] LABS: CREATININE, URINE 143.2 MG/DL; MAU/CREAT RATIO 4.1 MCG/MG (0.0-30.0)
[2024-12-26 09:41] LABS: ALBUMIN 3.8 G/DL (3.2-5.2); BILIRUBIN,TOTAL 1.7 MG/DL (0.3-1.2); CALCIUM LEVEL 8.8 MG/DL (8.3-10.6); CHOLESTEROL RISK RATIO 3.4 (<5); CREATININE FOR GFR 1.21 MG/DL (0.70-1.30); GLOMERULAR FILTRATION RATE 66.5 (>49); HDL CHOLESTEROL 26.7 MG/DL (>40); LDL CHOLESTEROL 29.3 MG/DL (<100); NON-HDL-C 64.3 MG/DL; POTASSIUM SERUM 4.3 MMOL/L (3.5-5.1); TOTAL PROTEIN 6.7 G/DL (5.7-8.2)
[2024-12-26 09:52] LABS: HEMOGLOBIN A1c 6.9 % (4.0-6.0)
== END ==
LOC: M LAB 08:25
PROVIDERS: ATTEND Family Medicine
DX: E11.9 Type 2 diabetes mellitus without complications (principal); E78.5 Hyperlipidemia, unspecified; I10 Essential (primary) hypertension

== ENCOUNTER → 2025-04-17 | Outpatient (CLI) | payer MEDICARE, OTHER ==
[~2025-04-17] MED LIST changes: +HYDR12.510 PO; -HYDR12CA PO
[2025-04-17 08:42] LABS: BASO # 0.0 10^3/uL (0.0-0.2); BASO % 0.5 % (0.0-1.0); EOS # 0.4 10^3/uL (0.0-0.5); EOS % 6.2 % (0.0-3.0); LYMPH # 1.6 10^3/uL (1.5-5.0); LYMPH % 28.6 % (24.0-44.0); MONO # 0.6 10^3/uL (0.0-0.8); MONO % 9.8 % (2.0-8.0); NEUTROPHILS # 3.1 10^3/uL (1.5-8.5); NEUTROPHILS % 54.5 % (36.0-66.0); PLATELET COUNT, AUTOMATED 190 10^3/uL (150-450)
[2025-04-17 08:46] LABS: APPEARANCE, URINE CLEAR (CLEAR); BACTERIA, URINE AUTO NEGATIVE (NEGATIVE); BILIRUBIN, URINE AUTO NEGATIVE (NEGATIVE); BLOOD, URINE BLOOD NEGATIVE (NEGATIVE); GLUCOSE, URINE (UA) AUTO NEGATIVE (NEGATIVE); KETONE, URINE AUTO NEGATIVE (NEGATIVE); LEUKOCYTE ESTERASE, URINE AUTO NEGATIVE (NEGATIVE); MUCUS, URINE SMALL (NEGATIVE); NITRITE, URINE AUTO NEGATIVE (NEGATIVE); PROTEIN, URINE AUTO NEGATIVE (NEGATIVE); RBC, URINE AUTO 0 /HPF (0-3); SPECIFIC GRAVITY URINE AUTO 1.013 (1.002-1.035); SQUAMOUS EPITHELIAL CELL UR AU 0 /HPF (0-6); UROBILINOGEN, URINE AUTO 0.2 mg/dL (0.0-2.0); WBC, URINE AUTO 0 /HPF (0-3)
[2025-04-17 08:56] LABS: ESTIMATED AVERAGE GLUCOSE 154.0 MG/DL (60-110)
[2025-04-17 09:10] LABS: ALT/SGPT 50.0 U/L (7.0-40); AST/SGOT 33.0 U/L (<34); CALCIUM LEVEL 9.2 MG/DL (8.3-10.6); CARBON DIOXIDE LEVEL 29.0 MMOL/L (20-31); CHLORIDE LEVEL 105.0 MMOL/L (98-107); CREATININE FOR GFR 1.25 MG/DL (0.70-1.30); GLOMERULAR FILTRATION RATE 63.9 (>49); POTASSIUM SERUM 4.1 MMOL/L (3.5-5.1); SODIUM LEVEL 142.0 MMOL/L (136-145)
== END ==
LOC: M LAB 07:59
PROVIDERS: ATTEND Family Medicine
DX: E78.5 Hyperlipidemia, unspecified (principal); I10 Essential (primary) hypertension; E11.9 Type 2 diabetes mellitus without complications

== ENCOUNTER → 2025-06-11 | Outpatient (CLI) | payer MEDICARE, OTHER ==
[2025-06-11 15:15] LABS: BASO # 0.0 10^3/uL (0.0-0.2); BASO % 0.4 % (0.0-1.0); EOS # 0.3 10^3/uL (0.0-0.5); EOS % 5.1 % (0.0-3.0); LYMPH # 1.7 10^3/uL (1.5-5.0); LYMPH % 33.7 % (24.0-44.0); MONO # 0.5 10^3/uL (0.0-0.8); MONO % 9.0 % (2.0-8.0); NEUTROPHILS # 2.6 10^3/uL (1.5-8.5); NEUTROPHILS % 51.6 % (36.0-66.0); PLATELET COUNT, AUTOMATED 196 10^3/uL (150-450)
[2025-06-11 15:20] LABS: CALCIUM LEVEL 9.3 MG/DL (8.3-10.6); CARBON DIOXIDE LEVEL 28.0 MMOL/L (20-31); CHLORIDE LEVEL 105.0 MMOL/L (98-107); CREATININE FOR GFR 1.24 MG/DL (0.70-1.30); GLOMERULAR FILTRATION RATE 64.1 (>49); POTASSIUM SERUM 4.2 MMOL/L (3.5-5.1); SODIUM LEVEL 142.0 MMOL/L (136-145)
== END ==
LOC: M WUC 09:09
PROVIDERS: ATTEND Family Medicine
DX: R22.1 Localized swelling, mass and lump, neck (principal); E11.9 Type 2 diabetes mellitus without complications

== ENCOUNTER → 2025-06-15 | Outpatient (CLI) | payer MEDICARE, OTHER | LOC: M RAD 07:04 | PROVIDERS: ATTEND Family Medicine | DX: R22.1 Localized swelling, mass and lump, neck (principal) ==

== ENCOUNTER → 2025-07-14 | Outpatient (CLI) | payer MEDICARE, OTHER ==
[2025-07-14 14:31] VITALS: TEMP 97.4
[2025-07-14 15:08] VITALS: BP 152/88; O2SAT 94
[2025-07-14] MEDS: LIDOCAINE 1% MDV 20 ML VIAL SC SCH (15:14)
== END ==
LOC: M IRPRO 14:15
PROVIDERS: ATTEND Otolaryngology
DX: E04.1 Nontoxic single thyroid nodule (principal)